=== PATIENT | female | born 1960 | race Caucasian/White ===

== ENCOUNTER → 2016-08-27 | Outpatient (CLI) | payer MEDICAID ==
[2015-06-16 23:55] VITALS: BP 156/72
--- NOTE | 2016-08-27 13:55 | RAD ---
HISTORY: Low back pain Study: 5 views of the lumbar spine Comparison: None. Findings: Normal alignment without subluxation or listhesis. Multilevel degenerative disc disease resulting i n grade 1 retrolisthesis L1 on L2 and L2 on L3 and L3 on L4. Vertebral body heights are normal. Mult ilevel facet arthropathy particularly of L4-L5 and L5-S1. Sacroiliac joints are unremarkable. No philip dence for acute fracture can be identified. IMPRESSION: 1. Multilevel degenerative disc disease and listhesis as above. Reported By:
== END ==
LOC: RAD 12:10
PROVIDERS: ATTEND Nurse Practitioner Family
DX: M54.42 Lumbago with sciatica, left side (principal)
CPT/HCPCS: 72110

== ENCOUNTER → 2016-09-27 | Outpatient (CLI) | payer MEDICAID ==
[2015-06-16 23:55] VITALS: BP 156/72
--- NOTE | 2016-09-28 09:21 | MRI ---
MRI lumbar spine without contrast Indication: Lower back pain without trauma Technique: Multi sequence, multi planar MR images of the lumbar spine were obtained without contrast . Comparison: Radiographs August 27, 2016, CT abdomen pelvis June 17, 2015 Findings: There is mild levoscoliosis of the lumbar spine. An intraosseous hemangioma is incidentally noted wi thin the T12 vertebral body. Marrow signal and spine alignment otherwise appear normal. No acute fra cture, subluxation or suspicious osseous lesion identified. The conus is normal in signal and calibe r, terminating at T12-L1. There is stable mild dilatation of the right renal collecting system. Small bilateral renal cysts ar e present. 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 Remaining imaged paraspinal soft tissues demonstrate no unexpect ed findings. T12-L1, L1-L2: Unremarkable L2-L3: Mild facet arthropathy and ligamentum flavum thickening in combination with levo curvature of the lumbar spine result in moderate left neural foraminal narrowing. L3-L4: Mild broad-based posterior disc bulge, bilateral facet arthropathy and ligamentum flavum thic kening with resultant moderate bilateral neural foraminal narrowing, greater on the left. L4-L5: Mild broad-based posterior disc bulge, ligamentum flavum thickening and moderate facet arthro liberty, causing severe right and moderate left neural foraminal narrowing. L5-S1: Posterior disc bulge, lateralized towards the left with moderate hypertrophic facet arthropat hy and ligamentum flavum thickening. There is resultant severe left neural foraminal narrowing. Impression: 1. Mild lumbar levo-scoliosis and multilevel discogenic degenerative change and facet arthropathy, r esulting in varying degrees of bilateral neural foraminal stenosis, as detailed above. 2. 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 Reported By:
== END ==
LOC: RAD 14:15
PROVIDERS: ATTEND Nurse Practitioner Family
DX: M54.42 Lumbago with sciatica, left side (principal)
CPT/HCPCS: 72148

== ENCOUNTER → 2016-12-26 | Outpatient (CLI) | payer MEDICAID ==
[2015-06-16 23:55] VITALS: BP 156/72
--- NOTE | 2017-01-01 08:44 | MG ---
Examination: Bilateral screening mammogram. Clinical history: Routine screening. Technique: Digital CC and MLO views of both breasts were obtained. Computer aided detection analysis was performed and used during the interpretation. Comparison: 07/06/2015. Findings: The breasts are composed of scattered fibroglandular densities. Benign-appearing calcifications and s table benign-appearing densities are noted in the breasts bilaterally. There is a new oval density present in the upper outer aspect of the left breast in the middle depth. Additional imaging evaluation is recommended, with spot compression magnification views in the CC an d MLO projections, a lateral view of the left breast and a left breast ultrasound. No suspicious mass, area of architectural distortion or suspicious cluster of microcalcifications is noted in the right breast. Impression: 1. New density in the left breast, as described above. BI-RADS category 0 (ZERO) - ASSESSMENT INCOMPLETE; ADDITIONAL IMAGING IS NEEDED. Recommend immediate recall for additional imaging evaluation, as described above. Diagnostic CAD was utilized and reviewed. * 0 (ZERO) - ASSESSMENT INCOMPLETE; ADDITIONAL IMAGING IS NEEDED. * 0C - ASSESSMENT INCOMPLETE, NEEDS ADDITIONAL IMAGING EVALUATION AND/OR PRIOR MAMMOGRAMS FOR COMPARI SON. * 1/1 (ONE) - NEGATIVE. * 2/II (TWO) - BENIGN FINDINGS. * 3/III (THREE) - PROBABLY BENIGN FINDING; SHORT INTERVAL FOLLOW-UP SUGGESTED. * 4/IV (FOUR) - SUSPICIOUS ABNORMALITY; BIOPSY SHOULD BE CONSIDERED. * 5/V - HIGHLY SUSPICIOUS OF MALIGNANCY; BIOPSY SHOULD BE PERFORMED. * 6/IV - KNOWN BIOPSY PROVEN MALIGNANCY-APPROPRIATE ACTION SHOULD BE TAKEN. A NEGATIVE X-RAY REPORT SHOULD NOT DELAY BIOPSY IF A DOMINANT OR CLINICALLY SUSPICIOUS MASS IS PRESENT; 4 TO 8 PERCENT OF CANCERS ARE NOT IDENTIFIED BY X-RAY. A NEGATIVE REPORT MAY REINFORCE THE CLINICAL IMPRESSION. ADENOSIS AND DENSE BREASTS MAY OBSCURE AN UNDERLYING NEOPLASM. Reported By:
== END ==
LOC: RAD 10:00
PROVIDERS: ATTEND Nurse Practitioner Family
DX: Z12.31 Encounter for screening mammogram for malignant neoplasm of breast (principal); R92.8 Other abnormal and inconclusive findings on diagnostic imaging of breast
CPT/HCPCS: 77067

== ENCOUNTER → 2017-02-13 | Outpatient (CLI) | payer MEDICAID ==
[2015-06-16 23:55] VITALS: BP 156/72
--- NOTE | 2017-02-13 14:47 | RAD ---
Examination: Cervical spine History: Chronic neck pain Findings: Frontal and lateral views of the neck were obtained including lateral views in flexion and extension. There is degenerative disc space narrowing at C3-4. No fracture or bone destruction is not ed. There is minimal retrolisthesis demonstrated on extension, returning to normal alignment on flexi on. Normal prevertebral soft tissues. Normal appearance of C1-2 complex. Impression: Degenerative disc disease at the C3-4 level. Minimal inconstant malalignment at this leve l may be related to some degree of ligamentous instability. Reported By:
--- NOTE | 2017-02-13 16:38 | MRI ---
MRI thoracic spine without contrast Indication: Chronic mid back pain Technique: Multisequence, multiplanar MR images of the thoracic spine were obtained without IV contra st. Comparison: None Findings: There is an intraosseous hemangioma within the T12 vertebral body. Vertebral body heights, alignment and marrow signal are otherwise normal. No acute fracture, subluxation or suspicious osseou s lesion is identified. The thoracic spinal cord is normal in signal and caliber. The conus terminate s normally at T12-L1. The visualized paraspinal soft tissues demonstrate no gross unexpected findings . C7-T1, T1-T2, T2-T3, T3-T4, T4-T5. T5-T6, T6-T7: Mild disc desiccation. Otherwise, unremarkable. T7-T8: There is mild disc desiccation and left paracentral disc bulge without significant resultant c anal or foraminal stenosis. T8-T9: Mild disc desiccation and facet arthropathy. Otherwise, unremarkable. T9-T10, T10-T11: Mild facet arthropathy and prominent anterior bridging syndesmophytes without signif icant canal or foraminal stenosis. T11-T12, T12-L1: Very mild facet arthropathy. Otherwise, unremarkable. Impression: Mild multilevel degenerative changes of the thoracic spine, as detailed above without high-grade dino l or foraminal stenosis identified at any level. Reported By:
--- NOTE | 2017-02-13 16:55 | MRI ---
MRI cervical spine without contrast Indication: Chronic neck pain Technique: Multisequence, multiplanar MR images of the cervical spine were obtained without IV contra st. Comparison: None Findings: Vertebral body heights, alignment and marrow signal are normal. No acute fracture, subluxat ion or suspicious osseous lesion is identified. The visualized contents of the posterior fossa and ce rvicomedullary junction are normal. There are mild degenerative changes of the atlantodental interval . The atlantoaxial joint is otherwise normal. The prevertebral and paravertebral soft tissues are unr emarkable. C2-C3:Unremarkable C3-C4: There is a mildly prominent posterior disc osteophyte complex, which effaces the anterior thec al sac and contacts the anterior cord without associated cord deformity or edema. There is also bilat eral uncovertebral hypertrophy, greater on the right with mild resultant right foraminal stenosis. C4-C5: Mild central disc bulge without significant canal or foraminal stenosis. C5-C6, C6-C7: Unremarkable. Impression: Mild discogenic degenerative changes and uncovertebral hypertrophy of the cervical spine, most signif icant at C3-C4 as detailed above. Reported By:
== END | disposition home or self-care (01) | DRG 552 ==
LOC: RAD 08:17
PROVIDERS: ATTEND Neurological Surgery
DX: M47.12 Other spondylosis with myelopathy, cervical region (principal); M54.6 Pain in thoracic spine; M50.31 Other cervical disc degeneration, high cervical region; M12.88 Other specific arthropathies, not elsewhere classified, other specified site; M51.34 Other intervertebral disc degeneration, thoracic region
CPT/HCPCS: 72050; 72141; 72146

== ENCOUNTER → 2017-02-19 | Outpatient (CLI) | payer MEDICAID ==
[2015-06-16 23:55] VITALS: BP 156/72
--- NOTE | 2017-02-19 14:45 | MG ---
HISTORY: Abnormal screening mammography with new left breast nodule Study: Left breast digital diagnostic mammography with CAD Comparison: Multiple previous exams dating back to October 13, 2008 Findings: Spot magnification and mL views of the left breast were obtained. Scattered fibroglandular parenchyma it is noted. There is a stable 9 mm smoothly marginated and well circumscribed isodense nodule in th e upper outer quadrant with the previously described new adjacent nodule more anteriorly measuring 7 mm the becoming less prominent and assuming a similar appearance as compared to the more remote prior s with a central notched lucency most likely consistent with a stable benign intramammary lymph node. There is no new or developing suspicious mass or architectural distortion. IMPRESSION: No mammographic evidence of malignancy. BI-RADS 2. Benign findings. Yearly mammographic imaging is recommended. * 0 (ZERO) - ASSESSMENT INCOMPLETE; ADDITIONAL IMAGING IS NEEDED. * 1/1 (ONE) - NEGATIVE. * 2/II (TWO) - BENIGN FINDINGS. * 3/III (THREE) - PROBABLY BENIGN FINDING; SHORT INTERVAL FOLLOW-UP SUGGESTED. * 4/IV (FOUR) - SUSPICIOUS ABNORMALITY; BIOPSY SHOULD BE CONSIDERED. * 5/V (FIVE) - HIGHLY SUSPICIOUS OF MALIGNANCY; BIOPSY SHOULD BE PERFORMED. * 6/ (SIX) - KNOWN MALIGNANCY. A NEGATIVE X-RAY REPORT SHOULD NOT DELAY BIOPSY IF A DOMINANT OR CLINICALLY SUSPICIOUS MASS IS PRESENT; 4 TO 8 PERCENT OF CANCERS ARE NOT IDENTIFIED BY X-RAY. A NEGA TIVE REPORT MAY REINFORCE THE CLINICAL IMPRESSION. ADENOSIS AND DENSE BREASTS MAY OBSCURE AN UNDERLY ING NEOPLASM. Reported By:
== END ==
LOC: RAD 12:10
PROVIDERS: ATTEND Nurse Practitioner Family
DX: R92.2 Inconclusive mammogram (principal)
CPT/HCPCS: 77065